=== PATIENT | male | born 1985 | race Hispanic/Latino ===

== ENCOUNTER 2022-11-26 13:31 | Emergency (ER) | payer OTHER, SELFPAY ==
[2022-11-26 13:42] VITALS: BP 124/85; PULSE 79; RESP 18; TEMP 36.3; O2SAT 99
--- NOTE | 2022-11-26 13:52 | ED.URI ---
HPI - URI/Sore Throat General Chief Complaint: Upper Respiratory Infection Stated Complaint: Cough,Headaches,Congestion Time Seen by Provider: 11/26/22 13:47 Source: patient Mode of arrival: ambulatory Limitations: no limitations History of Present Illness HPI Narrative: Patient presents today complaining of dry cough, sinus pressure, and headache x1 month. Denies fever or any additional symptoms. He has been taking Mucinex DM and Tylenol with mild short-term relief. Denies history of asthma or COPD. He is a nonsmoker. Related Data Home Medications Medication Instructions Recorded Confirmed No Home Medications 07/11/22 11/26/22 Allergies Allergy/AdvReac Type Severity Reaction Status Date / Time No Known Allergies Allergy Verified 11/26/22 13:35 Review of Systems Review of Systems: CONSTITUTIONAL: Denies body aches, fever, chills, or sweats. EYES: Denies visual changes, redness, or discharge. ENT: Denies rhinorrhea, congestion, sore throat, or otalgia.+ sinus pressure CARDIOVASCULAR: Denies chest pain, palpitations, or edema. RESPIRATORY: Denies dyspnea.+ dry cough GASTROINTESTINAL: Denies abdominal pain, nausea, vomiting, or diarrhea. GENITOURINARY: Denies dysuria or hematuria. SKIN: Denies rash, itching, or wounds. MUSCULOSKELETAL: Denies back pain, joint pain, or myalgia. NEUROLOGIC: Denies numbness, tingling, or weakness.+ headache PSYCH: Denies depression or anxiety. PMFSH Past Medical History Medical History BMI 25.0-25.9,adult Encounter to establish care Seasonal allergies Family History Family History Father Hypertension Social History Social History Smoking status: Never smoker Alcohol intake: current Drinks per week: 4 Alcohol use details: Beer Substance use: never Comments At time of signature, I have reviewed and agree with nursing past medical, surgical, social and family history unless otherwise noted. Please see nursing chart for further information. There is no relevant family history pertinent to the presenting complaint Exam Narrative: GENERAL: Well-appearing, well-nourished, and in no acute distress. HEAD: Normocephalic, atraumatic. EYES: EOMI. No redness or drainage. Conjunctivae normal. ENT: Mucous membranes pink and moist. Nares clear. No rhinorrhea. TMs normal bilaterally. Throat normal. Uvula midline. No frontal or maxillary sinus tenderness. NECK: Normal AROM. Supple. No lymphadenopathy. CHEST: No respiratory distress. Clear to auscultation. HEART: Regular rate and rhythm. No murmur appreciated. Normal peripheral pulses. EXTREMITIES: Normal range of motion. No edema. SKIN: Warm, dry, no rash. Capillary refill normal. Normal skin turgor. NEURO: No focal deficits. Alert and oriented x3. Gait steady. PSYCH: Normal affect. No signs of depression or anxiety. Course Course Level of Care: Express Care Visit Vital Signs Vital signs: Vital Signs Temperature 97.3 F L 11/26/22 13:42 Pulse Rate 79 11/26/22 13:42 Respiratory Rate 18 11/26/22 13:42 Blood Pressure 124/85 11/26/22 13:42 Pulse Oximetry 99 11/26/22 13:42 Oxygen Delivery Room Air 11/26/22 13:42 Temperature 97.3 F L 11/26/22 13:42 Pulse Rate 79 11/26/22 13:42 Respiratory Rate 18 11/26/22 13:42 Blood Pressure 124/85 11/26/22 13:42 Pulse Oximetry 99 11/26/22 13:42 Oxygen Delivery Room Air 11/26/22 13:42 Reviewed. Pt has been instructed to follow up with his PCP regarding his elevated blood pressure today. MDM - URI/Sore Throat MDM Narrative Medical decision making narrative: Will treat for sinusitis and bronchitis with Augmentin and prednisone. Anticipatory guidance given. Differential Diagnosis Differential diagnosis: Likely upper respiratory infection, sinusitis,
== END 2022-11-26 14:00 | disposition home or self-care (01) ==
PROVIDERS: Emergency Provider Nurse Practitioner; PCP Family Medicine
DX: J32.9 Chronic sinusitis, unspecified (principal); J40 Bronchitis, not specified as acute or chronic
CPT/HCPCS: 99211; G0463

== ENCOUNTER 2025-05-02 16:33 | Emergency (ER) | payer OTHER, SELFPAY ==
--- OUTSIDE RECORDS SUMMARY | 2025-05-02 16:35 | XMS_ITS | Clinical Summary ---
Author Organization [facility] Address [address], [facility] [address] [place] [address] Phone Care Team Providers Care Senior Private Client Advisor Name Role Phone Unavailable Primary Care Provider Unavailabl e Allergies No known active allergies Medications No known medications Active Problems Problem Noted Date Diagnosed Date Right testicular pain 12/21/2020 Hematospermia 12/21/2020 Intractable cluster headache syndrome 01/13/2020 Hyperlipidemia 06/12/2019 Elevated liver enzymes 06/12/2019 Seasonal allergies 05/18/2019 Gastroesophageal reflux disease 05/18/2019 Fatigue 05/18/2019 Immunizations Immunization Administration Dates Next Due Covid-19, Mrna, Lnp-s, Pf, 30 Mcg/0.3 Ml Dose (P fizer) 10/30/2021 Influenza Vaccine 08/19/2017 Influenza Vaccine greater than 3 yrs 08/03/2019 Influenza Vaccine, Quadrivalent, PF 08/19/2017,1 Influenza, Injectable, Mdck, quadrivalent,with Preservative 08/08/2020 Influenza, Seasonal, Injectable, Undefined 08/03 Family History Relation Name Status Comments Father Alive Mother Alive Social History Tobacco Use Types Packs/Day Years Used Date Smoking Tobacco: Never Smokeless Tobacco: Never Tobacco Cessation:Counseling Given: Yes Alcohol Use Standard Drinks/Week Comments Yes 0 (1 standard drink = 0.6 oz pur e alcohol) occasional PHQ-2 Answer Date Recorded Total Score - Questions 1-9 0 11/27 Education Answer Date Recorded What is the highest level of school you have completed or the highest degree you have received? 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 Oxygen Saturation 98% 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 Inhaled Oxygen Concentration - - Weight 78.5 kg (173 lb) 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 Height 170.2 cm (5' 7) 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 Body Mass Index 27.1 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 Plan of Treatment Health Maintenance Due Date Last Done Comments TdaP Immunization 1986 Hepatitis B Immunization (2 of 3 - 3-dose series) 11/02/2000 10/05/2000 Human Papillomavirus (HPV) Immunization (1 - Male 3-dose series) 2001 SARS-COV-2 Immunization ( season) 2024 10/30/2021, 03/07/2021, 02/10/2021 Influenza Immunization (#1) 06/26/202507/26, 08/03/2019, 08/03/2019, Additional history exists Respiratory Syncytial Virus (RSV) Immunization (Adult) (1 - 1-dose 75+ series) 2061 Hepatitis C Virus (HCV) Screening Completed 08/03/2019 Meningococcal Immunization (ACWY) Aged Out No longer eligible based on patient's age to complete this topic Pneumococcal Immunization Combined Aged Out No longer eligible based on patient's age to complete this topic Rotavirus Immunization Aged Out No lo nger eligible based on patient's age to complete this topic Procedures Procedure Name Priority Date/Time Associated Diagnosis Comments HEPATITIS PANEL ACUTE (AHP) Routine 08/03/2019 9:25 AM CDT Elevated liver enzymes from Last 3 Months or Most Recently Relevant to Health Maintenance Results * HEPATITIS PANEL ACUTE (AHP) (08/03/2019 9:25 AM CDT) HEPATITIS A IGM ANTIBODY NON DETECTED NON DETECTED 08/03/2019 10:13 PM CDT [facility] Comment: IGM Antibodies to HAV not detected. Does not exclude early acute or recovered HAV infection. HEP B CORE AB (IGM) NON DETECTED NON DETECTED 08/03/2019 10:13 PM CDT [facility] Comment: IGM anti-HBC not detected. Does not exclude the possibility of exposure to or infection with HBV. HEPATITIS B SURFACE ANTIGEN NON DETECTED NON DETECTED 08/03/2019 10:13 PM CDT [facility] Comment: A nonreactive test result does not exclude the possibility of exposure to or infection with Hepatitis B virus. A nonreactive test result in individuals with prior exposure to hepatitis B may be due to antigen levels below the detection limit of this assay or lack of antigen reactivity to the antibodies in this assay. hepatitis C antibody 0.07 <1 S/CO 08/03/2019 10:13 PM CDT [facility] Comment: Signal/Cutoff ratio < 0.79 is Nondetected Signal/Cutoff ratio 0.80-0.99 is Grayzone Signal/Cutoff ratio > 0.99 is Detected Supplemental assays are recommended if signal/cutoff ratio is >/=1.00. Signal/cutoff ratio result >/= 5.00 is 97% predictive of positivity for recombinant immunoblot assay (RIBA) and will be reported to the [place] Department of Public [facility] as required. Blood specimen (specimen) Venipuncture / Unknown 08/03/2019 9:25 AM CDT 08/03/2019 10:58 AM CDT us Krish Ocampo MD HEMATOLOGY ORDERABLES Fin al Result [facility] [address] [place] [address], [place] from Last 3 Months or Most Recently Relevant to Health Maintenance Insurance [facility]
--- OUTSIDE RECORDS SUMMARY | 2025-05-02 16:35 | XMS_ITS | Clinical Summary ---
Author Organization [facility] Address [facility] [place] [address] Care Team Providers Care Business Sales Consultant Name Role Phone Unavailable Primary Care Provider Unavailabl e Source Comments [facility],non-owned Affiliates and Associated Physician Practices is amultiple site organization consisting of ambulatory clinics and hospital sitesin [place], [place], [place] and [place]. This disclosure is being madepursuant to the Care Everywhere program and may not contain all information available regarding this patient. Last updated 18.[facility] Allergies No known active allergies Medications * Be aware that medications may not be up to date on this document. Alwaysverify current medications with the patient. 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 Gender Identity Male 01/06/2022 8:34 PM CDT Sexual Orientation Straight 01/06/2022 8: 34 PM CDT Last Filed Vital Signs Vital Sign Reading Time Taken Comments Blood Pressure 122/84 12/25/2018 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 Pulse 87 12/25/2018 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 Temperature 36.4 C (97.5 F) 12/25/2018 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 Respiratory Rate 20 12/25/2018 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 Oxygen Saturation 95% 12/25/2018 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 Inhaled Oxygen Concentration - - Weight 68 kg (150 lb) 12/25/2018 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 Height 172.7 cm (5' 8) 12/25/2018 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 Body Mass Index 22.81 12/25/2018 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 Plan of Treatment Health Maintenance Due Date Last Done Comments HIV SCREENING 2001 HEPATITIS C SCREENING 01/16/2004 DTAP/TDAP/TD VACCINES (1 - Tdap) 2005 HEPATITIS B VACCINE (1 of 3 - 19+ 3-dose series) 2005 COVID-19 VACCINE (1 - 2023-2 5 season) 2024 DEPRESSION SCREENING 10/26/2024 INFLUENZA VACCINE (Season Ended) 2025 08/19/2017, 08/24/2015 ZOSTER VACCINE (1 of 2) 01/21/2036 HIB VACCINE Aged Out No longer eligi ble based on patient's age to complete this topic HPV VACCINE Aged Out No longer eligi ble based on patient's age to complete this topic MENINGOCOCCAL (Group B) VACCINE SHARED DECISION-MAKING Aged Out No longer eligible based on patient's age to complete this topic MENINGOCOCCAL GROUPS A/C/Y/W VACCINE Aged Out No longer eligible b ased on patient's age to complete this topic PNEUMOCOCCAL VACCINE Aged Out No long er eligible based on patient's age to complete this topic [place] [address] [place] [address]
[2025-05-02 16:39] VITALS: BP 120/73; PULSE 85; RESP 16; TEMP 36.2; O2SAT 100
--- NOTE | 2025-05-02 16:52 | ED.GENADULT ---
HPI - General Adult General Chief complaint: Skin/Abscess/Foreign Body Stated complaint: RT Foot Infection History of Present Illness HPI narrative: Janusz Chan Is a 40-year-old male who presents today with complaints of having a itchy rash to the base of his great toe that he was scratching and now has gotten more inflamed with some honey-crusted discharge and spreading to portion of the bottom of his foot as well. No fevers no chills Related Data Home Medications ?Medication ?Instructions ?Recorded ?Confirmed ?Last Taken ?Type 5-hydroxytryptophan (5-HTP) [5-HTP] PO 11/24/24 04/18/25 Unknown History Allergies Allergy/AdvReac Type Severity Reaction Status Date / Time No Known Allergies Allergy Verified 05/02/25 16:42 Review of Systems Review of Systems: All systems reviewed & are unremarkable except as noted in HPI and below PMFSH Past Medical History Medical History BMI 27.0-27.9,adult Anxiety Hyperlipidemia Elevated bilirubin BMI 26.0-26.9,adult Hypertension Wellness examination BMI 25.0-25.9,adult Seasonal allergies Encounter to establish care Family History Family History Father Hypertension Social History Social History Smoking status: Never smoker Alcohol intake: current Drinks per week: 4 Alcohol use details: Beer Substance use: never Exam Narrative: GENERAL: Well-appearing, well-nourished, and in no acute distress. HEAD: Normocephalic, atraumatic. EYES: PERRLA and EOMI. ENT: Nares clear, no rhinorrhea or epistaxis. Mucous membranes moist. Oropharynx without tonsillar hypertrophy exudate or other lesions. NECK: Supple. CHEST: Clear to auscultation. No respiratory distress. No wheezes rales or rhonchi HEART: Regular rate and rhythm. No murmur heard. Normal peripheral pulses. ABDOMEN: Soft, nontender, nondistended, normal active bowel sounds. EXTREMITIES: Normal range of motion. No edema. SKIN: proximal base of the right great toe + honey crusted lesions with some mild erythema and spreading of the honey crusted lesions to the bottom of his foot about 2 cm in lenght of lesions. NEURO: No focal deficits. Alert and oriented x3. PSYCH: Normal mood and affect. Course Course Level of Care: Express Care Visit Vital Signs Vital signs: Vital Signs Temperature 36.2 C L 05/02/25 16:39 Pulse Rate 85 05/02/25 16:39 Respiratory Rate 16 05/02/25 16:39 Blood Pressure 120/73 05/02/25 16:39 Pulse Oximetry 100 05/02/25 16:39 Oxygen Delivery Room Air 05/02/25 16:39 Temperature 36.2 C L 05/02/25 16:39 Pulse Rate 85 05/02/25 16:39 Respiratory Rate 16 05/02/25 16:39 Blood Pressure 120/73 05/02/25 16:39 Pulse Oximetry 100 05/02/25 16:39 Oxygen Delivery Room Air 05/02/25 16:39 Medical Decision Making MDM Narrative Medical decision making narrative: Based on history and exam concern for impetigo will start patient on Keflex q.i.d. for 1 week and mupirocin t.i.d. for 5 days discussed need for keeping area cleansed and cleaning any areas that has touches it is very contagious. Patient agrees with plan feels comfortable with this denies anything further at this time. Vital Signs Vital Signs: Vital Signs Temperature 36.2 C L 05/02/25 16:39 Pulse Rate 85 05/02/25 16:39 Respiratory Rate 16 05/02/25 16:39 Blood Pressure 120/73 05/02/25 16:39 Pulse Oximetry 100 05/02/25 16:39 Oxygen Delivery Room Air 05/02/25 16:39 Temperature 36.2 C L 05/02/25 16:39 Pulse Rate 85 05/02/25 16:39 Respiratory Rate 16 05/02/25 16:39 Blood Pressure 120/73 05/02/25 16:39 Pulse Oximetry 100 05/02/25 16:39 Oxygen Delivery Room Air 05/02/25 16:39 Discharge Plan Discharge Clinical Impression: Impetigo Patient Disposition: Home Condition: Stable Instructions: Antibiotic Form, Impetigo (ED) Additional Instructions: start taking the Cephalexin 4 times a day for 10 days Start cleansing area on your feet then apply the mupirocin cream three times a day for 5 days Follow up with your PCP in 1 week to ensure this is improving Make sure you are cleaning the area that your feet have touched as this is very contagious If you develop increased swelling / increased pain/ fever / vomiting then go to the ER Patient Language: Armenian Prescriptions: New mupirocin [Centany] 2 % ointment 1 applic topical TID Qty: 22 1RF Rx Instructions: after cleansing affected area, apply three times daily for 5 days to the affected areas. cephalexin 500 mg capsule 500 mg PO Q6H 10 Days Qty: 40 0RF Rx Instructions: take one capsule 4 times a day for 10 days No Action lisinopril 10 mg tablet 10 mg PO DAILY Qty: 90 3RF 5-hydroxytryptophan (5-HTP) [5-HTP] PO Rx Instructions: anxiety Follow-up/Referrals: Josh Ba MD [Primary Care Provider] - 1 Week Time of Disposition: 17:01
== END 2025-05-02 17:09 | disposition home or self-care (01) ==
PROVIDERS: Emergency Provider Nurse Practitioner Family; PCP Family Medicine
DX: L01.00 Impetigo, unspecified (principal); E78.5 Hyperlipidemia, unspecified; I10 Essential (primary) hypertension
CPT/HCPCS: 99213; G0463